=== PATIENT | male | born 2000 | race Caucasian/White ===

== ENCOUNTER → 2022-09-25 | Outpatient (CLI) | payer MEDICAID ==
--- NOTE | 2022-09-25 16:30 | US ---
EXAMINATION TYPE: US scrotum with doppler. Grayscale and color Doppler Duplex imaging performed of ajay smith scrotum. DATE OF EXAM: 09/25/2022 COMPARISON: NONE CLINICAL HISTORY: [id number] SCROTAL PAIN. Pain within bilateral testicles, worse on the right. The pain s tarted in May. EXAM MEASUREMENTS: TESTICLES: Right Testicle: 4.3 x 2.5 x 2.0 cm Left Testicle: 4.0 x 2.5 x 1.8 cm EPIDIDYMIS HEAD: Right Epididymis: 0.7 x 1.0 x 1.1 cm Left Epididymis: 0.6 x 1.2 x 1.1 cm Doppler performed to assess for testicular vascularity; bilateral color flow and waveforms are seen. Presence of hydrocele: Yes on the left: 0.8 x 0.4 x 0.4 cm. Presence of varicoceles: Vessels on the left measure 0.43 cm. IMPRESSION: 1. No testicular torsion. 2. Left-sided small hydrocele
== END | disposition home or self-care (01) ==
LOC: RADUSWWP 14:13
PROVIDERS: ATTEND Internal Medicine
DX: N43.3 Hydrocele, unspecified (principal)
CPT/HCPCS: 76870; 93975